=== PATIENT | female | born 1940 | race Caucasian/White ===

== ENCOUNTER → 2018-11-27 11:08 | Outpatient (CLI) | payer MEDICARE, BC ==
[2014-11-12 19:21] VITALS: BMI 36.7
[~2018-11-27 11:08] MED LIST: AVAPRO75 MG PO; CALCIUM 600 +1 EAC3 PO; FUROSEMIDE20 MG PO; HYDROCHLOROTHIA50 MG PO; HYDROCODON-ACE1 EAC7 PO; KLOR-CON 1010 MEQ PO; PRILOSEC10 MG PO; SULFAMETHOXAZOL1 TA3 PO
== END | disposition home or self-care (01) ==
LOC: D.HCCARDIO 11:08
DX: I20.9 Angina pectoris, unspecified (principal)

== ENCOUNTER 2018-12-13 10:45 | Outpatient (CLI) | payer MEDICARE, BC ==
[~2018-12-13] VITALS: Ht 154.9 cm; Wt 79.5 kg
--- NOTE | ~2018-12-13 | HEMODYNAMI ---
PATIENT:JEANETTE DAWSON MEDICAL RECORD: [id number] : 40 LOCATION:[facility] ADMISSION DATE: 12/13/18 Generatedon:12/13/201813:33 Patient name: JEANETTE DAWSON Patient #: [id number] SSN: : 1940 Date of study: 12/13/2018 Page: Of Hemodynamic Procedure Report Patient Data Patient Demographics Procedure consent was obtained First Name: JEANETTE Gender: Female Last Name: SAMIR : 1940 Patient #: [id number] Age: 78 year(s) Race: Unknown Additional ID: [id number] Contact details [address]: [address] [place] [address] State: [place] City: [place] Zip code: [address] Past Medical History Allergies: No known allergies Admission Admission Data Admission Date: 12/13/2018 Admission Time: 10:45 Procedure Procedure Types Cath Procedure Diagnostic Procedure LHC LHC w/Coronaries Sedation Charges Moderate Sedation up to 30 minutes Procedure Description Procedure Date Procedure Date: 12/13/2018 Procedure Start Time: 13:09 Procedure End Time: 13:33 Procedure Staff Name Function Fahad Perdomo MD Performing Physician Netta Hi RT Monitor Samaria Hurtado RN Nurse Robin Sherwood RT Scrub Procedure Data Cath Procedure Fluoroscopy Diagnostic fluoroscopy Total fluoroscopy Time: 8.4 time: 8.4 min min Diagnostic fluoroscopy Total fluoroscopy dose: 703 dose: 703 mGy mGy Contrast Material Contrast Material Type Amount (ml) Isovue 300 88 Entry Location Entry Primary Successful Side Size Upsize Upsize Entry Closure Arroyo ccessful Closure Location (Fr) 1 (Fr) 2 (Fr) Remarks Device Remarks Radial Right 6 Fr Mechanical artery Short Compression Estimated blood loss: 5 ml Diagnostic catheters Device Type Used For End Catheter Placement DIAGNOSTIC Kiln 110cm 5 LV Angiography Fr catheter ([id number]) DIAGNOSTIC Kiln 110cm 5 Right Coronary Fr catheter (481500) Angiography DIAGNOSTIC Terry 110cm Left Coronary 5Fr catheter (539978) Angiography DIAGNOSTIC 5FR Super Left Coronary Torque RBL-TG ([id number]) Angiography NO COST SUPPLY DIAGNOSTIC 5FR Super Left Coronary Torque RBL-JK ([id number]) Angiography NO COST SUPPLY Procedure Complications No complications Procedure Medications Medication Administration Route Dosage Oxygen etCO2 Nasal cannula 2 l/min Lidocaine 2% added to field 20 Heparin Flush Bag added to field 2 bags (1000units/500ml NS) 0.9% NaCl I.V. 100 ml/hr Radial Cocktail I.A. 1 syringe (Verapomil 2mg/Nitro 400mcg/Heparin 1500units) Versed I.V. 1 mg Fentanyl I.V. 50 mcg Versed I.V. 0.5 mg Fentanyl I.V. 25 mcg Versed I.V. 0.5 mg Fentanyl I.V. 25 mcg Hemodynamics Rest Heart Rate: 71 (bpm) Pressure Samples Time Site Value (mmHg) Purpose Heart Use Rate(bpm) 13:12 LV 119/5,17 EDP 79 Gradients Valve Time Site Site Mean SEP/DFP Peak To Heart Use 1 2 (mmHg) (sec/min) Peak Rate (mmHg) (bpm) Aortic 13:13 LV AO 75 Snapshots Pre Cath Intra NCS Post Cath Vital Signs Time Heart Resp SPO2 etCO2 NIBP (mmHg) Rhythm Pain Sedation Rate (ipm) (%) (mmHg) Status Level (bpm) 12:49:09 74 26 97 35.3 122/56(92) NSR 0 (11) 10(A) , No pain 12:53:23 74 18 98 36.8 126/72(108) NSR 0 (11) 10(A) , No pain 12:57:41 72 17 95 33.8 130/64(110) NSR 0 (11) 10(A) , No pain 13:02:01 83 17 96 0 123/57(94) NSR 0 (11) 9(A) , No pain 13:06:13 71 16 97 1.5 114/59(85) NSR 0 (11) 9(A) , No pain 13:10:27 76 13 98 1.5 111/67(95) NSR 0 (11) 9(A) , No pain 13:14:43 80 11 94 9 108/57(78) NSR 0 (11) 9(A) , No pain 13:18:59 83 14 96 1.5 117/55(78) NSR 0 (11) 9(A) , No pain 13:23:11 77 12 97 19.5 120/63(87) NSR 0 (11) 9(A) , No pain 13:27:31 79 13 98 124/56(103) NSR 0 (11) 9(A) , No pain 13:31:47 71 14 98 22.1 125/60(90) NSR 0 (11) 10(A) , No pain Medications Time Medication Route Dose Verified Delivered Reason Notes Effectiveness by by 12:53:32 Oxygen etCO2 2 l/min Fahad Buffie used for Nasal Conor Hurtado RN procedure cannula 12:53:40 Lidocaine 2% added 20ml Fahad Fahad for local to vial Conor Perdomo MD anesthetic field 12:53:47 Heparin Flush added 2 bags Fahad Fahad used for Bag to Conor Perdomo MD procedure (1000units/500ml field NS) 12:53:56 0.9% NaCl I.V. 100 Fahad Buffie Per ml/hr Conor Hurtado RN physician 12:55:15 Versed I.V. 1 mg Fahad Buffie for sedation Conor Hurtado RN 12:55:21 Fentanyl I.V. 50 mcg Fahad Buffie for sedation Conor Hurtado RN 13:08:04 Versed I.V. 0.5 mg Fahad Buffie for sedation Conor Hurtado RN 13:08:08 Fentanyl I.V. 25 mcg Fahad Buffie for sedation Conor Hurtado RN 13:11:30 Radial Cocktail I.A. 1 Fahad Fahad for (Verapomil syringe Conor Perdomo MD vasodilation 2mg/Nitro 400mcg/Heparin 1500units) 13:25:54 Versed I.V. 0.5 mg Fahad Buffie for sedation Conor Hurtado RN 13:25:57 Fentanyl I.V. 25 mcg Fahad Buffie for sedation Conor Hurtado RN Procedure Log Time Note 12:27:22 Time tracking: Regular hours (M-F 7:00 - 5:00) 12:27:26 Plan of Care:Hemodynamics will remain stable., Cardiac rhythm will remain stable., Comfort level will be maintained., Respiratory function will remain adequate., Patient/ family verbilizes understanding of procedure., Procedure tolerated without complication., Recovers from procedure without complications.. 12:31:47 Netta Hi RT(R) sent for patient. Start room use. 12:38:03 Patient received from Pre/Post Procedure Room to CCL 1 Alert and oriented. Tansferred to table in Supine position. 12:38:05 Warm blankets applied, and joanna hugger turned on for patient comfort. 12:38:05 Correct patient and procedure confirmed by team. 12:38:07 Signed procedure consent form obtained from patient. 12:38:07 ECG and BP/O2 sat monitors applied to patient. 12:47:58 Vital chart was started 12:50:10 Full Disclosure recording started 12:50:19 Rhythm: sinus rhythm 12:50:46 H&P Date Dictated: 11/14/2018 Within 30 days and on chart., H&P Addendum completed by physician on day of procedure. (MUST COMPLETE FOR ALL OUTPATIENTS). 12:50:48 Pre-procedure instructions explained to patient. 12:50:49 Pre-op teaching completed and patient verbalized understanding. 12:50:50 Family in patients room. 12:50:52 Patient NPO since Midnight. 12:50:58 Patient allergic to No known allergies 12:51:01 Is the patient allergic to Iodine/contrast media? No. 12:51:03 Is patient on blood thinner?No 12:51:04 Patient diabetic? No. 12:51:22 Previous problem with sedation/anesthesia? Yes stopped breathing w/general anesthesia 12:51:26 Snore? Yes 12:51:27 Sleep apnea? No 12:51:29 Deviated septum? No 12:51:30 Opens mouth fully? Yes 12:51:30 Sticks out tongue? Yes 12:51:32 Airway obstruction? No ? 12:51:35 Dentures? No ? 12:51:38 Pre procedure: right dorsailis pedis pulse 2+ Normal; easily identifiable; not easily obliterated 12:51:41 Modified Arnel's test Ulnar < 7 seconds 12:51:42 Patient pain scale 0/10 ?. 12:51:50 IV patent on arrival in left forearm with 0.9% NaCl at KVO. 12:51:51 Lab results completed and on chart. 12:51:55 Right Radial & Right Groin area was prepped with chlora-prep and draped in sterile fashion 12:51:56 Alarms reviewed by R. N. 12:51:57 Sharps counted by scrub and verified by R.N. 12:53:32 Oxygen 2 l/min etCO2 Nasal cannula was administered by Samaria Hurtado RN; used for procedure; 12:53:40 Lidocaine 2% 20ml vial added to field was administered by Fahad Perdomo MD; for local anesthetic; 12:53:47 Heparin Flush Bag (1000units/500ml NS) 2 bags added to field was administered by Fahad Perdomo MD; used for procedure; 12:53:56 0.9% NaCl 100 ml/hr I.V. was administered by Samaria Hurtado RN; Per physician; 12:54:14 Final Timeout: patient, procedure, and site verified with staff and physician. All members of the team are in agreement. 12:54:16 Right Radial site verified by team. 12:54:20 Fire Safety Assessment: A--An alcohol-based skin anteseptic being used preoperatively., C--Open oxygen or nitrous oxide is being used., D--An ESU, laser, or fiber-optic light is being used. 12:54:23 Physical assessment completed. ASA score P 2 - A patient with mild systemic disease as per Fahad Perdomo MD. 12:54:29 Sedation plan: IV Moderate Sedation Medication:Versed, Fentanyl 12:54:58 Baseline sample Acquired. 12:55:06 Use device set Radial Dx or PCI 12:55:07 ACIST Syringe (81073) opened to sterile field. 12:55:08 Medline Cath Pack ([id number]) opened to sterile field. 12:55:08 Bag Decanter (2002) opened to sterile field. 12:55:09 DIAGNOSTIC WIRE .035 260cm J wire (147850) opened to sterile field. 12:55:09 ACIST Hand Control (15916) opened to sterile field. 12:55:10 ACIST Manifold (04492) opened to sterile field. 12:55:11 MBrace Wrist Support ([id number]) opened to sterile field. 12:55:12 SHEATH 6FR Slender (29-0580) opened to sterile field. 12:55:15 Versed 1 mg I.V. was administered by Samaria Hurtado RN; for sedation; 12:55:21 Fentanyl 50 mcg I.V. was administered by Samaria Hurtado RN; for sedation; 12:56:20 Zero performed for pressure channel P1 13:08:04 Versed 0.5 mg I.V. was administered by Samaria Hurtado RN; for sedation; 13:08:08 Fentanyl 25 mcg I.V. was administered by Samaria Hurtado RN; for sedation; 13:08:18 Procedure started. 13:09:16 Local anesthetic to right radial artery with Lidocaine 2% by Fahad Perdomo MD.INITIAL ACCESS ONLY 13:09:37 A 6 Fr Short sheath was inserted into the Right Radial artery 13:10:41 A DIAGNOSTIC Kiln 110cm 5 Fr catheter (796798) was advanced over the wire and used for LV Angiography. 13:11:30 Radial Cocktail (Verapomil 2mg/Nitro 400mcg/Heparin 1500units) 1 syringe I.A. was administered by Fahad Perdomo MD; for vasodilation; 13:12:22 LV gram done using PATTERSON 13:12:26 Injector settings: Ml/sec: 5, Volume: 15, 13:12:36 EF : 60 % 13:12:39 LV hemodynamics recorded. 13:14:48 A DIAGNOSTIC Kiln 110cm 5 Fr catheter (736552) was advanced over the wire and used for Right Coronary Angiography. 13:14:58 Catheter removed. 13:15:44 A DIAGNOSTIC Terry 110cm 5Fr catheter (226505) was advanced over the wire and used for Left Coronary Angiography. unable to cannulate 13:18:07 Catheter removed. 13:19:31 A DIAGNOSTIC 5FR Super Torque RBL-TG ([id number]) NO COST SUPPLY was advanced over the wire and used for Left Coronary Angiography. unable to cannulate 13:22:56 Catheter removed. 13:23:11 A DIAGNOSTIC 5FR Super Torque RBL-JK ([id number]) NO COST SUPPLY was advanced over the wire and used for Left Coronary Angiography. unable to cannulate 13:23:49 Catheter removed. 13:25:01 GUIDE 5FR EBU 3.0 catheter ([id number]) opened to sterile field. 13:25:17 5 Fr EBU 3.0 guide catheter was inserted over the wire 13:25:54 Versed 0.5 mg I.V. was administered by Samaria Hurtado RN; for sedation; 13::57 Fentanyl 25 mcg I.V. was administered by Samaria Hurtado RN; for sedation; 13:26:56 LCA angiography performed. 13:27:31 Catheter removed. 13::48 Sheath removed intact; hemostasis achieved with Mechanical Compression to the Right Radial artery. 13:28:15 Procedure ended.(Physican Out) 13:28:34 Fluoroscopy time 08.40 minutes. 13::38 Fluoroscopy dose: 703 mGy 13::38 Flurop Dose total: 703 13::43 Contrast amount:Isovue 300 88ml. 13:28:44 Sharps counted by scrub and verified by R.N. 13:28:47 TR band inflated with 12cc of air. 13:28:48 Insertion/operative site no bleeding no hematoma. 13:28:59 Post right radial artery:stable, clean and dry 13:29:03 Post Procedure Pulses reassessed and unchanged 13:29:06 Post-procedure physical assessment completed. ASA score P 2 - A patient with mild systemic disease as per Fahad Perdomo MD. 13:29:08 Post procedure rhythm: unchanged. 13:29:15 Estimated blood loss: 5 ml 13:29:17 Post procedure instruction explained to patient.Patient verbalizes understanding. 13:29:17 Patient needs reinforcement of post procedure teaching. 13:29:36 Procedure type changed to Cath procedure, Diagnostic procedure, LHC, LHC w/Coronaries, Sedation Charges, Moderate Sedation up to 30 minutes 13:29:42 Procedure Complication : No complications 13:29:45 See physician's report for complete and final results. 13:31:16 TR BAND Standard ([id number]) opened to sterile field. 13:31:32 Procedure and supply charges have been captured, reviewed, submitted and are correct. 13:32:56 Vital chart was stopped 13:32:58 Report given to Pre/Post Procedure Room. 13:33:01 Patient transfered to Pre/Post Procedure Room with Stretcher. 13:33:09 Procedure ended. 13:33:09 Full Disclosure recording stopped 13:33:15 End room use (Document Last) Device Usage Item Name Manufacture Quantity Catalog Hospital Part Current Minimal Lot# / Number Charge Number Stock Stock Serial# Code ACIST Acist 1 33111 103284 593851 262235 20 [employer] (90079) Systems Inc Medline Medline 1 [id number] 666987 21545 326970 5 Cath Pack ([id number]) Bag Microtek 1 2001S 0975935 44547 800656 5 Decanter [employer] Inc. () DIAGNOSTIC St Fletcher 1 549314 944390 802947 985540 30 WIRE .035 260cm J wire (558076) ACIST Hand Acist 1 65490 936865 318126 912567 5 Control Medical (20993) Systems Inc ACIST Acist 1 83201 122859 977321 385103 5 Manifold Medical (00047) Systems Inc MBrace Advanced 1 140-0250-00 686164 63776 408875 5 Wrist Vascular Support Dynamics ([id number]) SHEATH 6FR Terumo 1 [id number] 587782 652181 995647 5 Slender (80-1060) DIAGNOSTIC Terumo 1 40-5013 406927 193370 069366 5 Kiln 110cm 5 Fr catheter (616166) DIAGNOSTIC Terumo 1 40-5023 480843 618539 624235 5 Terry 110cm 5Fr catheter (360185) DIAGNOSTIC Cardinal 1 [id number] 750258 625293 5 5FR Super Health Torque RBL-TG ([id number]) NO COST SUPPLY DIAGNOSTIC Cardinal 1 [id number] 246296 973749 5 5FR Super Health Torque RBL-JK ([id number]) NO COST SUPPLY GUIDE 5FR Medtronic 1 [id number] 349442 661476 584185 1 EBU 3.0 catheter ([id number]) TR BAND Terumo 1 [id number] 471482 252839 032205 40 Standard ([id number]) Signature Audit Seanor Stage Time Signature Unsigned Intra-Procedure 12/13/2018 Netta 1:33:26 PM Counts RT(R) Signatures Monitor : Netta Signature : Counts RT Date : Time : [address] [place] [address]
[~2018-12-13 10:45] MED LIST changes: -FUROSEMIDE20 MG PO; -SULFAMETHOXAZOL1 TA3 PO
[2018-12-13] MEDS ORDERED: SULFAMETHOXAZOL1 TA3 PO (11:05)
[2018-12-13] MEDS ORDERED: FUROSEMIDE20 MG PO (11:09)
[2018-12-13 11:22] VITALS: BP 136/48; Ht 154.9 cm; Wt 79.5 kg
[2018-12-13 11:36] LABS: BASOPHILS 0.4 % (0-2); EOSINOPHILS 1.5 % (0-7); HEMATOCRIT 40.8 % (36.0-48.0); HEMOGLOBIN 13.4 g/dL (12-16); IMMATURE GRANULOCYTES 0.2 % (0-5); LYMPHOCYTES 30.9 % (15-50); MCH 28.2 pg (26.0-34.0); MCHC 32.8 g/dL (31.0-37.0); MCV 85.9 fL (80.0-100.0); MEAN PLATELET VOLUME 10.2 fL (7.4-10.4); MONOCYTES 5.8 % (2-11); NEUTROPHILS 61.2 % (40-80); PLATELET COUNT 232 10x3/uL (130-400); RBC 4.75 10x6/uL (4.00-5.40); RDW 14.5 % (11.5-14.5); WBC 5.4 10x3/uL (4.8-10.8)
[2018-12-13 11:56] LABS: ANION GAP 14.3 mmol/L (8-16); CALCIUM 10.7 mg/dL (8.5-10.1); CARBON DIOXIDE 27.7 mmol/L (21.0-32.0); CREATININE - SERUM 1.2 mg/dL (0.6-1.3)
--- NOTE | 2018-12-13 13:55 | NUR ---
RIGHT RADIAL TR BAND IN PLACE. NO BLEEDING/HEMATOMA NOTED. VSS. PT RESTING COMFORTABLY.
--- NOTE | 2018-12-13 14:30 | NUR ---
PT SITTING UP IN BED. SET UP WITH DRINK AND SANDWICH TRAY. FAMILY AT BEDSIDE. 3cc OF AIR REMOVED FROM TR BAND. NO BLEEDING/HEMATOMA NOTED. CALL LIGHT WITHIN REACH. VSS.
--- NOTE | 2018-12-13 14:45 | NUR ---
3cc OF AIR REMOVED FROM TR BAND. PT TOLERATED WELL. NO BLEEDING/HEMATOMA NOTED.
--- NOTE | 2018-12-13 15:01 | NUR ---
3cc OF AIR REMOVED FROM TR BAND. PT TOLERATED WELL. NO BLEEDING/HEMATOMA NOTED. LEFT HAND PIV D/C'D WITH CATH TIP INTACT. PT INSTRUCTED TO GET UP AND GET DRESSED. FAMILY AT BEDSIDE FOR ASSISTANCE.
--- NOTE | 2018-12-13 15:20 | NUR ---
DISCUSSED DISCHARGE INSTRUCTIONS WITH PT AND PT'S FAMILY. THEY VOICED UNDERSTANDING. TR BAND REMOVED. DRESSING APPLIED. NO BLEEDING/HEMATOMA NOTED. RIGHT WRIST BRACE IN PLACE. PT INSTRUCTED TO KEEP ON FOR 2 HOURS AFTER SHE ARRIVES HOME AND THEN REMOVE.
--- NOTE | 2018-12-13 15:25 | NUR ---
PT AMBULATED TO RESTROOM. VOIDED WITHOUT DIFFICULTY. TAKEN OUT TO VEHICLE BY WHEELCHAIR. NO S/S OF DISTRESS NOTED. RIGHT WRIST DRESSING C/D/I. NO S/S OF HEMATOMA.
== END 2018-12-13 15:25 | disposition home or self-care (01) ==
LOC: D.CATH 10:45
PROVIDERS: ATTEND Internal Medicine Cardiovascular Disease
DX: I47.1 Supraventricular tachycardia (principal); Z01.812 Encounter for preprocedural laboratory examination